=== PATIENT | female | born 1940 ===

== ENCOUNTER 2018-04-11 12:50 | Outpatient (CLI) | payer MEDICARE | END 2018-04-11 12:51 | disposition home or self-care (01) | LOC: C.LAB 12:50 | DX: R19.06 Epigastric swelling, mass or lump (principal) ==

== ENCOUNTER 2018-04-18 07:49 | Outpatient (CLI) | payer MEDICARE | END 2018-04-18 07:50 | disposition home or self-care (01) | LOC: C.CTH 07:49 | DX: K44.9 Diaphragmatic hernia without obstruction or gangrene (principal); K21.9 Gastro-esophageal reflux disease without esophagitis ==

== ENCOUNTER 2018-05-08 10:42 | Outpatient (CLI) | payer MEDICARE | END 2018-05-08 10:43 | disposition home or self-care (01) | LOC: C.USIC 10:42 | DX: K44.9 Diaphragmatic hernia without obstruction or gangrene (principal); K21.9 Gastro-esophageal reflux disease without esophagitis; K57.30 Diverticulosis of large intestine without perforation or abscess without bleeding; K82.8 Other specified diseases of gallbladder ==